=== PATIENT | female | born 1950 | race Caucasian/White ===

== ENCOUNTER 2016-11-28 18:15 | Emergency (ER) | payer MEDICAID ==
[~2016-11-28] VITALS: Ht 157.5 cm; Wt 110.7 kg
[~2016-11-28 18:15] MED LIST: ASPI-1063 PO; CARV3.1246 PO; CLOP75TA2 PO; DILT60TA3 PO; ESCI10TA PO; FURO-150 PO; GABA-531 PO; GLIP10TA11 PO; INSNPH7030 SQ; INSU100V9 SUBCUT; IPRA0.2S6 INH; LIP10 PO; LORA-259 PO; LOSA100T11 PO; NYST15CR TP; PRO40 PO; SACC250C3 PO; SPIRIVA INH; SULF1TAB48 PO; SYN75
[2016-11-28 18:29] VITALS: BP_SYST 143
--- NOTE | 2016-11-28 19:54 | NUR ---
Patient to ER bed 3 to gown for evaluation. Side rails up. Report given to SANJUANA MARTINES.
--- NOTE | 2016-11-28 19:55 | NUR ---
Patient arrived to ED a/o x 4 with c/o right leg swelling. Patient reports swelling and tightness to the right lower leg. Moderate redness noted. 2+ pitting edema present. PMS present to the affected extremity. No evidence of skin breakdown. Skin is warm and dry. Patient denies fever. Family at bedside. Will continue to monitor.
--- NOTE | 2016-11-28 20:21 | NUR ---
#22 gauge angiocath placed to left hand. Use of asceptic technique. Opsite placed over site. Blood return noted. Blood for lab drawn from site. Flushed with 10 cc of normal saline. No evidence of infiltration noted. Patient tolerated well.
[2016-11-28 20:38] LABS: BASOPHILS % (AUTO) 0.2 % (0.0-2.0); EOSINOPHILS # (AUTO) 0.5 K/uL (0.0-0.4); EOSINOPHILS % (AUTO) 4.4 % (0.0-4.0); HEMATOCRIT 39.2 % (36-48); HEMOGLOBIN 12.7 g/dL (12.0-16.0); LYMPHOCYTES # (AUTO) 1.8 K/uL (1.0-5.5); MEAN CORPUSCULAR HEMOGLOBIN 27 pg (27-31); MEAN CORPUSCULAR HGB CONC 33 % (32-36); MEAN CORPUSCULAR VOLUME 83 fL (79.0-98.0); MONOCYTES % (AUTO) 8.3 % (1.7-9.3); NEUTROPHILS # (AUTO) 8.7 K/uL (1.8-7.7); NEUTROPHILS % (AUTO) 72.1 % (40.0-70.0); PLATELET COUNT (AUTO) 241 K/uL (130-430); RED BLOOD CELL COUNT(AUTO) 4.73 MIL/uL (4.2-6.2); RED CELL DISTRIBUTION WIDTH 16.3 % (9.0-15.0)
[2016-11-28 20:43] LABS: CALCIUM 9.1 mg/dL (8.4-11.0); CREATININE 1.68 mg/dL (0.55-1.30)
[2016-11-28 20:48] LABS: ALBUMIN 3.4 g/dL (3.4-4.8); PROTHROMBIN TIME 10.9 SECS (9.5-12.5); TOTAL BILIRUBIN 0.5 mg/dL (0.0-1.0); TOTAL PROTEIN, SERUM 7.1 g/dL (6.4-8.3)
--- NOTE | 2016-11-28 21:00 | NUR ---
Ultrasound at bedside.
--- NOTE | 2016-11-28 21:20 | NUR ---
Patient offered bedside commode.
[2016-11-28] MEDS ORDERED: FUROSEMIDE 20 MG/2 ML VIAL IVP ONE (21:30)
[2016-11-28] MEDS ORDERED: INSULIN REGULAR, HUMAN 10 UNITS/0.1 ML INJ IVP ONE (21:45)
[2016-11-28 21:47] LABS: BILIRUBIN,URINE NEGATIVE (NEGATIVE); CLARITY/URINE SL CLOUDY (CLEAR); COLOR,URINE YELLOW (YELLOW); GLUCOSE,URINE NEGATIVE (NEGATIVE); KETONES,URINE NEGATIVE (NEGATIVE); LEUKOCYTE ESTERASE ,URINE 2+ (NEGATIVE); NITRITE, URINE POSITIVE (NEGATIVE); PH,URINE 5.5 (5.0-8.0); PROTEIN URINE 2+ (NEGATIVE); UROBILINOGEN,URINE 0.2 (0.2-1.0)
--- NOTE | 2016-11-28 22:00 | NUR ---
Patient resting quietly. No acute distress noted. Vital signs within normal range.
[2016-11-28 22:15] LABS: BLOOD, URINE TRACE (NEGATIVE)
[2016-11-28 22:16] LABS: WBC,URINE >100 /HPF (0-3)
[2016-11-28 22:17] LABS: BACTERIA,URINE MANY /HPF (None Seen); MUCUS,URINE None Seen /LPF (None Seen)
[2016-11-28] MEDS ORDERED: SULFAMETHOXAZOLE/TRIMETHOPR DS 1 TABLET PO ONE (22:30)
--- NOTE | 2016-11-28 22:45 | NUR ---
ED MD Iyerek at bedside for reassessment
[2016-11-28 23:09] VITALS: BP_SYST 152
--- NOTE | 2016-11-28 23:09 | NUR ---
Patient given written and verbal discharge instructions and verbalizes understanding. ER MD discussed with patient the results and treatment provided. Patient in stable condition. ID arm band removed. IV catheter removed intact and dressing applied, no active bleeding. Rx of bactrim given. Patient educated on pain management and to follow up with PMD. Pain Scale 2/10 tolerable for patient. Opportunity for questions provided and answered.
== END 2016-11-28 23:09 | disposition home or self-care (01) ==
LOC: SED 18:15
DX: R60.0 Localized edema (principal); N28.9 Disorder of kidney and ureter, unspecified; N39.0 Urinary tract infection, site not specified; I11.0 Hypertensive heart disease with heart failure; I50.9 Heart failure, unspecified; J45.909 Unspecified asthma, uncomplicated; E11.9 Type 2 diabetes mellitus without complications; E07.9 Disorder of thyroid, unspecified; K21.9 Gastro-esophageal reflux disease without esophagitis; Z95.0 Presence of cardiac pacemaker; M19.90 Unspecified osteoarthritis, unspecified site; Z79.2 Long term (current) use of antibiotics; Z79.82 Long term (current) use of aspirin; Z79.899 Other long term (current) drug therapy; Z91.018 Allergy to other foods
CPT/HCPCS: 36415; 71010; 80053; 81000; 83880; 84484; 85025; 85379; 85610; 85730; 87086; 93005; 93970; 96374; 96375; 99285; J1815; J1940; 87186-TC